=== PATIENT | female | born 1950 | race Caucasian/White ===

== ENCOUNTER → 2020-10-03 | Outpatient (CLI) | payer BC ==
--- NOTE | 2020-10-03 16:12 | CARD ---
MR#: [id number] Date of Study: 10/03/2020 Ordering Physician: KAUR RECIO, Referring Physician: KAUR RECIO, Tech: Sonia Dalameliaoctavio, [facility] APPROVED REPORT INDICATION Pre-Op RISK FACTORS Hyperlipidemia Reason : Preop Clearance PROCEDURE The patient underwent an Exercise Stress Test using the [place] Protocol. Blood pressure, heart rate, a nd EKG were monitored. An Echocardiogram was performed by senior maintenance technician in four stages in quad fashion. At peak stress four se lected images were obtained and placed side by side with resting images for comparison. STRESS ECHO FINDINGS The resting Echocardiogram showed normal left ventricular systolic contractility with an estimated Ej ection Fraction of about 55 %. The Resting Echocardiogram showed normal augmentation of myocardial wall segments using a 16 segment model. The Stress Echocardiogram showed normal augmentation of myocardial wall segments using a 16 segment m bin. The Stress Echocardiogram left ventricular systolic contractility has an estimated Ejection Fraction of about 70%. Test Type: Exercise Stress Nurse/Tech: Alicja Cha R.N. Test Indications: pre-op evaluation Cardiac History and Allergies: HLD Medications: see ehr Medical History: see ehr Resting ECG: SR w/ BBB, slight ST elevation in lead II Resting Heart Rate: 76 bpm Resting Blood Pressure: 130/57mmHg Pretest Chest Pain: No chest pain Nurse/Tech Notes S1S2, lungs CTA Stress Symptoms No chest pain or symptoms. POST EXERCISE Reason for Termination: Reached target heart rate Target HR: Yes Max HR: 158 bpm 105% of Maximum Predicted HR: 151 bpm Exercise duration: 7:46 min:sec, 3 Stage Exercise capacity: 10.1METs Max Blood Pressure: 186/78mmHg Blood Pressure response to exercise: Normal blood pressure response during stress. Heart Rate response to exercise: wnl Chest Pain: No. Arrhythmia: Yes. had pvc's at the beginning of stress portion ST Change: No. INTERPRETATION Stress EKG Conclusion: Thing EKG showed a sinus rhythm with nonspecific ST-T wave changes. With exertion the stress EKG showed ST T wave changes in the inferior leads that are suggestive but n ot diagnostic of ischemia. Borderline EKG response to exertion that is not diagnostic of ischemia. Preliminary Notification Critical Value: No <Conclusion> 1. Good exercise tolerance. 2. No chest pain with exertion. 3. No significant arrhythmias with exertion. 4. Nonspecific ST-T wave changes with exertion that are mildly suggestive but not diagnostic of isch emia. 5. Normal LV systolic function at rest. 6. Normal LV systolic function response to exertion with no regional wall motion abnormalities. 7. Low to moderately low risk treadmill echo stress test. Signed by : Kaur Recio MD Electronically Approved : 10/03/2020 16:12:28
== END ==
LOC: ECHO 12:53
PROVIDERS: ATTEND Internal Medicine Cardiovascular Disease
DX: Z01.810 Encounter for preprocedural cardiovascular examination (principal); R94.31 Abnormal electrocardiogram [ECG] [EKG]
CPT/HCPCS: 93017; 93350